=== PATIENT | female | born 1990 | race Caucasian/White ===

== ENCOUNTER 2022-01-07 18:27 | Emergency (ER) | payer BC ==
[~2022-01-07] VITALS: Wt 122.5 kg
[2022-01-07] MEDS ORDERED: PAROXETINE HCL30 MG PO (18:51)
[2022-01-07] MEDS ORDERED: ARIPIPRAZOLE10 MG PO (18:52)
[2022-01-07] MEDS ORDERED: CEPHALEXIN500 M1 PO (19:49)
[2022-01-07] MEDS ORDERED: ANTIBIOTIC28.4 GM T (19:49)
[2022-01-07] MEDS ORDERED: HYDROCODON-ACE1 EACH PO (19:49)
[2022-01-08] MEDS ORDERED: HYDROCODONE-AC1 EAC1 PO (16:08)
== END 2022-01-07 20:11 | disposition home or self-care (01) ==
LOC: ED 18:27
DX: L55.0 Sunburn of first degree (principal)

== ENCOUNTER 2023-05-19 22:02 | Emergency (ER) | payer OTHER ==
[~2023-05-19] VITALS: Ht 162.5 cm; Wt 129.3 kg
[~2023-05-19 22:02] MED LIST: ANTIBIOTIC28.4 GM T; ARIPIPRAZOLE10 MG PO; CEPHALEXIN500 M1 PO; HYDROCODON-ACE1 EACH PO; HYDROCODONE-AC1 EAC1 PO; PAROXETINE HCL30 MG PO
[2023-05-19 23:46] LABS: BILIRUBIN Negative (Negative); BLOOD Trace-Lysed (Negative); CLARITY Clear (Clear); COLOR Yellow (Yellow); GLUCOSE Negative (Negative); KETONE Trace (Negative); LEUKO ESTERASE Negative (Negative); NITRITE Negative (Negative); PH 5.5 (4.5-8.0); SPECIFIC GRAVITY 1.025 (1.001-1.030)
[2023-05-19 23:58] LABS: HYALINE CAST 0-2; MUCOUS 1+
[2023-05-20 00:07] LABS: BASO # 0.1 10*3/uL (0.0-0.1); BASO % 0.4 % (0.0-1.0); EOS # 0.1 10*3/uL (0.0-0.4); HEMATOCRIT 45.3 % (37.0-47.0); LYMPH # 3.8 10*3/uL (1.3-4.4); LYMPH % 31.8 % (27.0-41.0); MEAN CELL VOLUME 90.4 fl (81.0-99.0); MEAN CORPUSCULAR HGB 32.1 pg (27.0-31.0); MEAN CORPUSCULAR HGB CONC 35.5 g/dl (33.0-37.0); MEAN PLATELET VOLUME 8.6 fl (9.6-12.3); MONO # 1.1 10*3/uL (0.1-1.0); MONO % 9.5 % (3.0-9.0); NEUT # 6.8 10*3/uL (2.3-7.9); PLATELET COUNT AUTOMATED 333 10*3/uL (130-400); RED BLOOD COUNT 5.01 10*6/uL (4.10-5.10); RED CELL DISTRI WIDTH 12.6 % (0-14.5); WHITE BLOOD COUNT 11.9 10*3/uL (4.8-10.8)
[2023-05-20 00:28] LABS: ALKALINE PHOSPHATASE 61 U/L (46-116); BUN 6 mg/dl (9-23); CHLORIDE 106 mmol/L (98-107); POTASSIUM 3.9 mmol/L (3.4-5.1); SGPT/ALT 30 U/L (10-49); TOTAL PROTEIN 7.5 gm/dL (6.0-8.0)
[2023-05-20 00:57] LABS: ACT PARTIAL THROMBO TIME 27.8 SECONDS (20.0-32.1); INTERNATIONAL NORM RATIO 1.1 (2.0-3.5)
[2023-05-20] MEDS ORDERED: CIPRO500 MG PO ×2 (01:50→07:57)
== END 2023-05-20 02:01 | disposition home or self-care (01) ==
LOC: ED 22:02
PROVIDERS: Internal Medicine
DX: N39.0 Urinary tract infection, site not specified (principal); F17.200 Nicotine dependence, unspecified, uncomplicated; Z79.899 Other long term (current) drug therapy

== ENCOUNTER 2023-06-23 16:08 | Emergency (ER) | payer OTHER ==
[~2023-06-23] VITALS: Ht 162.5 cm; Wt 129.3 kg
[~2023-06-23 16:08] MED LIST changes: +CIPRO500 MG PO
[2023-06-23] MEDS ORDERED: PAXIL20 M1 PO (17:51)
== END 2023-06-23 17:56 | disposition home or self-care (01) ==
LOC: ED 16:08
DX: F41.9 Anxiety disorder, unspecified (principal); Z76.0 Encounter for issue of repeat prescription; F32.A Depression, unspecified; Z79.899 Other long term (current) drug therapy

== ENCOUNTER 2023-09-25 01:48 | Emergency (ER) | payer OTHER ==
[~2023-09-25] VITALS: Ht 162.5 cm; Wt 124.7 kg
[~2023-09-25 01:48] MED LIST changes: +PAXIL20 M1 PO
[2023-09-25] MEDS ORDERED: SODIUM CHLORIDE 0.9% 1,000 ML IV ONE (02:20)
[2023-09-25] MEDS ORDERED: Ondansetron Hydrochloride 4 MG/2 ML VIAL IV ONE (02:20)
[2023-09-25] MEDS ORDERED: DIAZEPAM 10 MG/2 ML SYR IV ONE (02:20)
[2023-09-25 02:31] LABS: BASO % 0.4 % (0.0-1.0); EOS % 0.5 % (1.0-4.0); LYMPH # 1.1 10*3/uL (1.3-4.4); LYMPH % 14.6 % (27.0-41.0); MEAN CELL VOLUME 92.3 fl (81.0-99.0); MEAN CORPUSCULAR HGB 30.7 pg (27.0-31.0); MEAN CORPUSCULAR HGB CONC 33.3 g/dl (33.0-37.0); MEAN PLATELET VOLUME 8.8 fl (9.6-12.3); MONO # 0.6 10*3/uL (0.1-1.0); MONO % 8.1 % (3.0-9.0); NEUT % 76.3 % (47.0-73.0); PLATELET COUNT AUTOMATED 298 10*3/uL (130-400); RED BLOOD COUNT 5.31 10*6/uL (4.10-5.10); RED CELL DISTRI WIDTH 12.7 % (0-14.5); WHITE BLOOD COUNT 7.8 10*3/uL (4.8-10.8)
[2023-09-25 02:47] LABS: ALKALINE PHOSPHATASE 58 U/L (46-116); BUN 7 mg/dl (9-23); CHLORIDE 106 mmol/L (98-107); LIPASE 26 U/L (12-53); POTASSIUM 3.3 mmol/L (3.4-5.1); SGPT/ALT 63 U/L (5-49); TOTAL PROTEIN 7.5 gm/dL (6.0-8.0)
[2023-09-25 02:50] LABS: BILIRUBIN 2+ (Negative); BLOOD 1+ (Negative); CLARITY Turbid (Clear); COLOR Dark Yellow (Yellow); GLUCOSE Negative (Negative); KETONE 1+ (Negative); LEUKO ESTERASE 1+ (Negative); NITRITE Negative (Negative); SPECIFIC GRAVITY >= 1.030 (1.001-1.030)
[2023-09-25 03:05] LABS: EPITHELIAL CELLS TNTC; WBC 0-2 wbc/hpf (0-5)
[2023-09-25 03:06] LABS: BACTERIA 1+
[2023-09-25] MEDS ORDERED: ONDANSETRON4 MG SL (06:04)
== END 2023-09-25 06:09 | disposition home or self-care (01) ==
LOC: ED 01:48
PROVIDERS: Internal Medicine
DX: R11.2 Nausea with vomiting, unspecified (principal); E87.6 Hypokalemia; F32.A Depression, unspecified; F41.9 Anxiety disorder, unspecified; Z90.49 Acquired absence of other specified parts of digestive tract; Z90.89 Acquired absence of other organs

== ENCOUNTER 2023-11-06 10:14 | Emergency (ER) | payer OTHER ==
[~2023-11-06] VITALS: Ht 162.5 cm; Wt 127.0 kg
[~2023-11-06 10:14] MED LIST changes: +ONDANSETRON4 MG SL
[2023-11-06] MEDS ORDERED: DIAZEPAM 10 MG/2 ML SYR IV ONE (10:30)
[2023-11-06] MEDS ORDERED: Ondansetron Hydrochloride 4 MG/2 ML VIAL IV ONE (10:30)
[2023-11-06] MEDS ORDERED: SODIUM CHLORIDE 0.9% 1,000 ML IV ONE (10:30)
[2023-11-06 10:50] LABS: BASO # 0.1 10*3/uL (0.0-0.1); BASO % 0.4 % (0.0-1.0); EOS % 0.1 % (1.0-4.0); HEMATOCRIT 48.3 % (37.0-47.0); LYMPH % 14.3 % (27.0-41.0); MEAN CELL VOLUME 92.7 fl (81.0-99.0); MEAN CORPUSCULAR HGB 31.1 pg (27.0-31.0); MEAN CORPUSCULAR HGB CONC 33.5 g/dl (33.0-37.0); MEAN PLATELET VOLUME 9.3 fl (9.6-12.3); MONO # 0.8 10*3/uL (0.1-1.0); MONO % 6.1 % (3.0-9.0); NEUT # 10.8 10*3/uL (2.3-7.9); NEUT % 78.7 % (47.0-73.0); PLATELET COUNT AUTOMATED 318 10*3/uL (130-400); RED BLOOD COUNT 5.21 10*6/uL (4.10-5.10); RED CELL DISTRI WIDTH 12.9 % (0-14.5); WHITE BLOOD COUNT 13.6 10*3/uL (4.8-10.8)
[2023-11-06 11:04] LABS: ALKALINE PHOSPHATASE 54 U/L (46-116); BUN 7 mg/dl (9-23); CHLORIDE 110 mmol/L (98-107); LIPASE 36 U/L (12-53); POTASSIUM 3.7 mmol/L (3.4-5.1); SGPT/ALT 43 U/L (5-49)
[2023-11-06] MEDS ORDERED: Metoclopramide Hydrochloride 10 MG/2 ML AMP IV ONE (11:15)
[2023-11-06] MEDS ORDERED: ONDANSETRON4 MG SL (11:39)
[2023-11-06] MEDS ORDERED: PEPCID20 MG PO (12:28)
== END 2023-11-06 12:56 | disposition home or self-care (01) ==
LOC: ED 10:14
PROVIDERS: Physician Assistant Medical
DX: R11.2 Nausea with vomiting, unspecified (principal); F32.A Depression, unspecified; F41.9 Anxiety disorder, unspecified; Z90.49 Acquired absence of other specified parts of digestive tract; Z90.89 Acquired absence of other organs; Z87.891 Personal history of nicotine dependence